=== PATIENT | female | born 1980 | race Hispanic/Latino ===

== ENCOUNTER → 2019-06-19 08:42 | Outpatient (CLI) | payer MEDICARE, MEDICAID, SELFPAY ==
[2019-06-19 10:32] LABS: Hemoglobin A1C% w Est Avg Glu 5.5 % (4.0-6.0)
[2019-06-19 11:26] LABS: Alanine Aminotransferase 19 IU/L (<35); Albumin 4.5 g/dL (3.5-5.0); Albumin Globulin Ratio 1.5 (1.0-2.8); Alkaline Phosphatase 77 U/L (38-126); Aspartate Aminotransferase 22 IU/L (14-36); BUN Creatinine Ratio 24.5 (6-22); Bilirubin Total 0.3 mg/dL (0.2-1.3); Blood Urea Nitrogen 13 mg/dL (7-17); Calcium 9.7 mg/dL (8.4-10.2); Carbon Dioxide 24 mmol/L (22-32); Chloride 104 mmol/L (98-107); Cholesterol 168 mg/dL (140-199); Estimated Glomerular Filt Rate > 60.0 mL/min (>60); Globulin 3.1 g/dL (1.7-4.1); Glucose 98 mg/dL (70-100); HDL Cholesterol 44 mg/dL (40-60); HEMOLYSIS < 15 (0-50); LDL Cholesterol Calculated 91 mg/dL (<100); Potassium 4.7 mmol/L (3.4-5.1); Pregnancy Test Urine Negative (Negative); Sodium 138 mmol/L (137-145); Total Protein 7.6 g/dL (6.3-8.2); Triglycerides 167 mg/dL (35-150); UR Morphine/Opiate cutoff 300 Negative (Negative); Ur Creatinine Normal (Normal); Ur Specific Gravity Normal (Normal); Urine Amphetamines Negative (Negative); Urine Barbiturates Negative (Negative); Urine Benzodiazepines Negative (Negative); Urine Cocaine Negative (Negative); Urine MDMA Negative (Negative); Urine Methadone Negative (Negative); Urine Methamphetamines Negative (Negative); Urine Oxycodone Negative (Negative); Urine Phencyclidine Negative (Negative); Urine Tetrahydrocannabinol Negative (Negative); Urine Tricyclic Antidepressant Positive (Negative); Urine pH Normal (Normal)
[2019-06-19 11:42] LABS: Free T4, Direct Thyroxine 1.17 ng/dL (0.78-2.19)
[2019-06-19 11:56] LABS: Thyroid Stimulating Hormone 1.42 uIU/mL (0.47-4.68)
== END ==
PROVIDERS: Referring Provider Psychiatry & Neurology Psychiatry; Visit Provider Psychiatry & Neurology Psychiatry
DX: E11.9 Type 2 diabetes mellitus without complications (principal); F32.3 Major depressive disorder, single episode, severe with psychotic features
CPT/HCPCS: 36415; 80053; 80061; 80305; 81025; 83036; 84439; 84443

== ENCOUNTER 2020-03-08 15:49 | Emergency (ER) | payer MEDICARE, MEDICAID, SELFPAY ==
[2020-03-08] VITALS (11 sets, daily range): BP systolic 130–142; BP diastolic 75–81; PULSE 81–99; RESP 16–29; TEMP 37.2; O2SAT 93–99; BMI 35.9
[2020-03-08 16:25] LABS: COVID19 -Nasal RAPID Negative (Negative)
--- NOTE | 2020-03-08 17:03 | ED.SOB ---
HPI - SOB/Dyspnea <Breanne Arce DO - Last Filed: 03/11/20 21:44> General Chief Complaint: Shortness of Breath/Dyspnea Stated Complaint: SOB, Chest Tightening Time Seen by Provider: 03/08/20 16:03 Source: patient Mode of arrival: Ambulatory Limitations: no limitations History of Present Illness HPI Narrative: The patient is a 39-year-old female with history of anxiety and pulmonary embolism after a surgery presenting today with back pain and shortness of breath. She states this been ongoing for about a week she does have shortness of breath with exertion and lying down. She denies any any fever or chills. She has no lower extremity swelling or calf pain. She has pain in the back between her shoulder blades. She states this feels exactly like it did when she had a pulmonary embolism. She says it just really feels tight like she cannot take a deep breath MD Complaint: shortness of breath Onset (ago): week(s) (1) Severity: moderate Consistency/Duration: constant Relieving factors: nothing Exacerbating factors: lying flat and exertion Known history of: PE Treatment prior to arrival: none Related Data Previous Rx's Medication Instructions Recorded clonazepam 0.5 mg tablet 0.5 mg PO .COMPLEX #90 tab 03/08/20 Allergies Allergy/AdvReac Type Severity Reaction Status Date / Time atenolol AdvReac Intermediate nausea Verified 03/08/20 16:05 drospirenone AdvReac Intermediate GI issues, Verified 03/08/20 16:05 nausea and vomitting metoclopramide AdvReac Intermediate altered Verified 03/08/20 16:05 heart rate prochlorperazine AdvReac Intermediate vertigo Verified 03/08/20 16:05 promethazine AdvReac Intermediate possible Verified 03/08/20 16:05 reaction in the past topiramate AdvReac Intermediate pancreatitis, Verified 03/08/20 16:05 anaphaxis Review of Systems <DO Masoud Conklin Last Filed: 03/11/20 21:44> Review of Systems Narrative: GENERAL: Denies chills, fatigue, malaise, fever, sweats, travel HEENT: Denies sinus pain, ear pain, sore throat, difficulty swallowing, neck pain RESPIRATORY: See HPI CARDIOVASCULAR: Denies chest pain, palpitations, orthopnea, edema GASTROINTESTINAL: Denies nausea, vomiting, abdominal pain, diarrhea, constipation, melena. : Denies dysuria, frequency, incontinence, hematuria, urinary retention, flank pain. MUSCULOSKELETAL: Denies weakness, joint pain, or bony pain SKIN: No rash, no erythema, no pruritus NEUROLOGIC: Denies weakness, dizziness, headache, numbness, change in speech, confusion PSYCHIATRIC: No concerning psychosocial issues. 12 point review of systems is negative except for those stated above and HPI Patient History <Breanne Arce DO - Last Filed: 03/11/20 21:44> Medical History Anxiety Major depressive disorder, single episode, severe w psychotic behavior Pulmonary embolism Social History Smoking Status: Never smoker Smoking Status: Never smoker Substance Use Type: does not use Exam <Breanne Arce DO - Last Filed: 03/11/20 21:44> Initial Vital Signs Initial Vital Signs: Vital Signs Temperature 98.9 F 03/08/20 16:06 Pulse Rate 82 03/08/20 16:06 Respiratory Rate 18 03/08/20 16:06 Blood Pressure 142/81 H 03/08/20 16:06 Pulse Oximetry 98 03/08/20 16:06 GENERAL: Alert overweight female and in no acute distress. HEENT: Head atraumatic,EOMI, pupils reactive, face symmetric, moist mucous membranes CARDIOVASCULAR: Regular rate and rhythm without murmurs, rubs or gallops. RESPIRATORY: Breath sounds equal bilaterally, no wheezes rales or rhonchi. ABDOMEN: Soft, nontender. Normoactive bowel sounds all 4 quadrants. No guarding or rebound. EXTREMITIES: Normal range of motion, no clubbing or edema. Neurovascularly intact NEUROLOGICAL: Alert and oriented x4.Normal gait and speech. Cranial nerves II through XII grossly intact. SKIN: Warm, dry, no laceration, no petechiae, no rashes or lesions. <Jeovanny Cox DO - Last Filed: 03/09/20 01:09> Initial Vital Signs Initial Vital Signs: Vital Signs Temperature 98.9 F 03/08/20 16:06 Pulse Rate 82 03/08/20 16:06 Respiratory Rate 18 03/08/20 16:06 Blood Pressure 142/81 H 03/08/20 16:06 Pulse Oximetry 98 03/08/20 16:06 Course <Breanne Arce DO - Last Filed: 03/11/20 21:44> Orders Ordered: Discontinued Medications Albuterol (Albuterol 2.5 Mg/3 Ml Neb (Adult)) 2.5 mg INH NOW ONE Stop: 03/08/20 17:12 Last Admin: 03/08/20 17:55 Dose: 2.5 mg Documented by: YASIR Albuterol (Albuterol Hfa Mdi 60 Puff/8 Gm Inhaler) 2 puff INH NOW ONE Stop: 03/08/20 20:57 Last Admin: 03/08/20 21:05 Dose: 2 puff Documented by: CITLALI Vital Signs Vital signs: Vital Signs - 8 hr 03/08/20 17:30 03/08/20 17:55 03/08/20 18:30 Pulse Rate 97 H 96 H 87 Respiratory Rate 25 H 22 16 Blood Pressure Pulse Oximetry 98 96 94 03/08/20 19:00 03/08/20 19:30 03/08/20 20:00 Pulse Rate 83 99 H 87 Respiratory Rate 20 29 H Blood Pressure Pulse Oximetry 95 99 93 03/08/20 20:30 03/08/20 20:50 Pulse Rate 84 81 Respiratory Rate 18 Blood Pressure 130/81 Pulse Oximetry 96 97 <Jeovanny Cox DO - Last Filed: 03/09/20 01:09> Course Course Narrative: Patient received in sign-out from Dr. Arce. I performed an independent history and physical exam. Vital signs are very reassuring. Breathing is unlabored without evidence of rales, rhonchi or wheezing. CT a demonstrates no evidence of PE, infiltrate or other abnormal finding. Patient does have a slight elevation in her white blood cells, etiology is unclear, but no obvious source of bacterial infection. Patient did report improvement after bronchodilators earlier. Extensive discussion at bedside regarding reassuring findings on today's visit. Return precautions given, questions answered to her apparent satisfaction. Orders Ordered: Discontinued Medications Albuterol (Albuterol 2.5 Mg/3 Ml Neb (Adult)) 2.5 mg INH NOW ONE Stop: 03/08/20 17:12 Last Admin: 03/08/20 17:55 Dose: 2.5 mg Documented by: YASIR Albuterol (Albuterol Hfa Mdi 60 Puff/8 Gm Inhaler) 2 puff INH NOW ONE Stop: 03/08/20 20:57 Last Admin: 03/08/20 21:05 Dose: 2 puff Documented by: CITLALI Vital Signs Vital signs: Vital Signs - 8 hr 03/08/20 17:30 03/08/20 17:55 03/08/20 18:30 Pulse Rate 97 H 96 H 87 Respiratory Rate 25 H 22 16 Blood Pressure Pulse Oximetry 98 96 94 03/08/20 19:00 03/08/20 19:30 03/08/20 20:00 Pulse Rate 83 99 H 87 Respiratory Rate 20 29 H Blood Pressure Pulse Oximetry 95 99 93 03/08/20 20:30 03/08/20 20:50 Pulse Rate 84 81 Respiratory Rate 18 Blood Pressure 130/81 Pulse Oximetry 96 97 MDM - SOB/Dyspnea <Breanne Arce DO - Last Filed: 03/11/20 21:44> Lab Data Attestation: I reviewed the patient's lab results. Result diagrams: 03/08/20 18:38 03/08/20 18:38 Labs: Lab Results 03/08/20 03/08/20 03/08/20 Range/Units 16:00 18:38 18:38 WBC 14.4 H (4.5-11.0) X10^3/uL RBC 4.82 (4.0-5.2) X10^6/uL Hgb 13.4 (12.0-16.0) g/dL Hct 41.2 (36-46) % MCV 85.4 (80-100) fL MCH 27.9 (26-34) PG MCHC 32.7 (30-36) % RDW 14.1 (11.6-14.8) % Plt Count 403 H (150-400) X10^3/uL Neut % (Auto) 59.9 (50-75) % Lymph % (Auto) 31.2 (25-40) % [place] % (Auto) 6.2 (3-14) % Eos % (Auto) 1.8 L (2-4) % Baso % (Auto) 0.9 (0-2) % Neut # (Auto) 8600 H (5343-5637) /uL Lymph # (Auto) 4500 (1062-8223) /uL [place] # (Auto) 900 (0-900) /uL Eos # (Auto) 300 (0-450) /uL Baso # (Auto) 100 (0-100) /uL D-Dimer (<230) ng/mL Sodium 139 (137-145) mmol/L Potassium 3.8 (3.4-5.1) mmol/L Chloride 106 (98-107) mmol/L Carbon Dioxide 27 (22-32) mmol/L BUN 12 (7-17) mg/dL Creatinine 0.61 (0.52-1.04) mg/dL Estimated GFR > 60.0 (>60) mL/min BUN/Creatinine Ratio 19.7 (6-22) Glucose 102 H (70-100) mg/dL Calcium 9.4 (8.4-10.2) mg/dL Total Bilirubin 0.2 (0.2-1.3) mg/dL AST 28 (14-36) IU/L ALT 23 (<35) IU/L Alkaline Phosphatase 91 (38-126) U/L Lactate Dehydrogenase 497 (313-618) U/L Total Creatine Kinase 83 (30-135) U/L CK-MB (CK-2) TNP CK-MB (CK-2) Rel Index TNP Troponin I < 0.012 (0.01-0.034) ng/mL C-Reactive Protein 2.1 H (<1.0) mg/dL NT-Pro-B Natriuret Pep 45 (<125) pg/mL Total Protein 8.0 (6.3-8.2) g/dL Albumin 4.5 (3.5-5.0) g/dL Globulin 3.5 (1.7-4.1) g/dL Albumin/Globulin Ratio 1.3 (1.0-2.8) Procalcitonin (<0.5) ng/mL COVID-19 PCR Negative (Negative) 03/08/20 03/08/20 Range/Units 18:38 18:38 WBC (4.5-11.0) X10^3/uL RBC (4.0-5.2) X10^6/uL Hgb (12.0-16.0) g/dL Hct (36-46) % MCV (80-100) fL MCH (26-34) PG MCHC (30-36) % RDW (11.6-14.8) % Plt Count (150-400) X10^3/uL Neut % (Auto) (50-75) % Lymph % (Auto) (25-40) % [place] % (Auto) (3-14) % Eos % (Auto) (2-4) % Baso % (Auto) (0-2) % Neut # (Auto) (6218-6253) /uL Lymph # (Auto) (4806-9714) /uL [place] # (Auto) (0-900) /uL Eos # (Auto) (0-450) /uL Baso # (Auto) (0-100) /uL D-Dimer 304 H (<230) ng/mL Sodium (137-145) mmol/L Potassium (3.4-5.1) mmol/L Chloride (98-107) mmol/L Carbon Dioxide (22-32) mmol/L BUN (7-17) mg/dL Creatinine (0.52-1.04) mg/dL Estimated GFR (>60) mL/min BUN/Creatinine Ratio (6-22) Glucose (70-100) mg/dL Calcium (8.4-10.2) mg/dL Total Bilirubin (0.2-1.3) mg/dL AST (14-36) IU/L ALT (<35) IU/L Alkaline Phosphatase (38-126) U/L Lactate Dehydrogenase (313-618) U/L Total Creatine Kinase (30-135) U/L CK-MB (CK-2) CK-MB (CK-2) Rel Index Troponin I (0.01-0.034) ng/mL C-Reactive Protein (<1.0) mg/dL NT-Pro-B Natriuret Pep (<125) pg/mL Total Protein (6.3-8.2) g/dL Albumin (3.5-5.0) g/dL Globulin (1.7-4.1) g/dL Albumin/Globulin Ratio (1.0-2.8) Procalcitonin < 0.05 (<0.5) ng/mL COVID-19 PCR (Negative) Point of Care Testing Test Results Negative Urine Dip Bedside Urine Glucose Negative Bedside Urine Bilirubin - Negative Bedside Urine Ketone - Negative Urine Specific [place] 1.025 Bedside Urine Occult Blood - Negative Bedside Urine pH 6.0 Bedside Urine Protein - Negative Bedside Urine Urobilinogen - Negative Bedside Urine Nitrite - Negative Bedside Urine Leukocytes - Negative Esterase ECG Data Attestation: I personally reviewed and interpreted this ECG as follows: Prior ECG tracings: not available for review Interpretation: Normal sinus rhythm, rate [address] changes or T-wave inversions. MDM Narrative Medical decision making narrative: To Dr. Cox for further management <Jeovanny Cox DO - Last Filed: 03/09/20 01:09> Lab Data Labs: Lab Results 03/08/20 03/08/20 03/08/20 Range/Units 16:00 18:38 18:38 WBC 14.4 H (4.5-11.0) X10^3/uL RBC 4.82 (4.0-5.2) X10^6/uL Hgb 13.4 (12.0-16.0) g/dL Hct 41.2 (36-46) % MCV 85.4 (80-100) fL MCH 27.9 (26-34) PG MCHC 32.7 (30-36) % RDW 14.1 (11.6-14.8) % Plt Count 403 H (150-400) X10^3/uL Neut % (Auto) 59.9 (50-75) % Lymph % (Auto) 31.2 (25-40) % [place] % (Auto) 6.2 (3-14) % Eos % (Auto) 1.8 L (2-4) % Baso % (Auto) 0.9 (0-2) % Neut # (Auto) 8600 H (5219-8106) /uL Lymph # (Auto) 4500 (7535-3940) /uL [place] # (Auto) 900 (0-900) /uL Eos # (Auto) 300 (0-450) /uL Baso # (Auto) 100 (0-100) /uL D-Dimer (<230) ng/mL Sodium 139 (137-145) mmol/L Potassium 3.8 (3.4-5.1) mmol/L Chloride 106 (98-107) mmol/L Carbon Dioxide 27 (22-32) mmol/L BUN 12 (7-17) mg/dL Creatinine 0.61 (0.52-1.04) mg/dL Estimated GFR > 60.0 (>60) mL/min BUN/Creatinine Ratio 19.7 (6-22) Glucose 102 H (70-100) mg/dL Calcium 9.4 (8.4-10.2) mg/dL Total Bilirubin 0.2 (0.2-1.3) mg/dL AST 28 (14-36) IU/L ALT 23 (<35) IU/L Alkaline Phosphatase 91 (38-126) U/L Lactate Dehydrogenase 497 (313-618) U/L Total Creatine Kinase 83 (30-135) U/L CK-MB (CK-2) TNP CK-MB (CK-2) Rel Index TNP Troponin I < 0.012 (0.01-0.034) ng/mL C-Reactive Protein 2.1 H (<1.0) mg/dL NT-Pro-B Natriuret Pep 45 (<125) pg/mL Total Protein 8.0 (6.3-8.2) g/dL Albumin 4.5 (3.5-5.0) g/dL Globulin 3.5 (1.7-4.1) g/dL Albumin/Globulin Ratio 1.3 (1.0-2.8) Procalcitonin (<0.5) ng/mL COVID-19 PCR Negative (Negative) 03/08/20 03/08/20 Range/Units 18:38 18:38 WBC (4.5-11.0) X10^3/uL RBC (4.0-5.2) X10^6/uL Hgb (12.0-16.0) g/dL Hct (36-46) % MCV (80-100) fL MCH (26-34) PG MCHC (30-36) % RDW (11.6-14.8) % Plt Count (150-400) X10^3/uL Neut % (Auto) (50-75) % Lymph % (Auto) (25-40) % [place] % (Auto) (3-14) % Eos % (Auto) (2-4) % Baso % (Auto) (0-2) % Neut # (Auto) (3395-0658) /uL Lymph # (Auto) (2243-1743) /uL [place] # (Auto) (0-900) /uL Eos # (Auto) (0-450) /uL Baso # (Auto) (0-100) /uL D-Dimer 304 H (<230) ng/mL Sodium (137-145) mmol/L Potassium (3.4-5.1) mmol/L Chloride (98-107) mmol/L Carbon Dioxide (22-32) mmol/L BUN (7-17) mg/dL Creatinine (0.52-1.04) mg/dL Estimated GFR (>60) mL/min BUN/Creatinine Ratio (6-22) Glucose (70-100) mg/dL Calcium (8.4-10.2) mg/dL Total Bilirubin (0.2-1.3) mg/dL AST (14-36) IU/L ALT (<35) IU/L Alkaline Phosphatase (38-126) U/L Lactate Dehydrogenase (313-618) U/L Total Creatine Kinase (30-135) U/L CK-MB (CK-2) CK-MB (CK-2) Rel Index Troponin I (0.01-0.034) ng/mL C-Reactive Protein (<1.0) mg/dL NT-Pro-B Natriuret Pep (<125) pg/mL Total Protein (6.3-8.2) g/dL Albumin (3.5-5.0) g/dL Globulin (1.7-4.1) g/dL Albumin/Globulin Ratio (1.0-2.8) Procalcitonin < 0.05 (<0.5) ng/mL COVID-19 PCR (Negative) Point of Care Testing Test Results Negative Urine Dip Bedside Urine Glucose Negative Bedside Urine Bilirubin - Negative Bedside Urine Ketone - Negative Urine Specific [place] 1.025 Bedside Urine Occult Blood - Negative Bedside Urine pH 6.0 Bedside Urine Protein - Negative Bedside Urine Urobilinogen - Negative Bedside Urine Nitrite - Negative Bedside Urine Leukocytes - Negative Esterase Imaging Data CT scan - chest: Radiologist's Impression: [address] [id number] Scan ReportSigned Patient: Sydnie Samson GMR#: [id number]: [id number]:[id number]/Sex: 39 / FDate of Service: 03/08/20Loc: EDAccession Number: [id number] Procedure: CT angio chest PE protocol Ordering Provider: Breanne Arce D.O. PROCEDURE: CT ANGIO CHEST PE PROTOCOL INDICATIONS: sob with hx of PE TECHNIQUE: After the administration of intravenous contrast, 2 mm thick sections acquired from the pulmonary apices to the posterior costophrenic angles. 3-dimensional maximum intensity projection (MIP) coronal and sagittal reformats were then acquired through the thorax. For radiation dose reduction, the following was used: automated exposure control, adjustment of mA and/or kV according to patient size. COMPARISON: None. FINDINGS: Image quality: Excellent. Pulmonary arteries: Pulmonary arteries are normal in size, and demonstrate no intraluminal filling defects to suggest central pulmonary embolism. Lungs and pleura: Lungs are clear. No pleural effusions or pneumothorax. Central and peripheral airways are patent. Mediastinum: Heart size is normal, without pericardial effusion. No mediastinal or hilar adenopathy. Thoracic aorta is normal in caliber and enhancement. Esophagus is normal in caliber, without hiatal hernia. Bones and chest wall: No suspicious bony lesions. Ribs and thoracic spine appear intact throughout. Thyroid gland is normal . No axillary or supraclavicular adenopathy. Abdomen: Visualized upper abdominal solid organs appear normal in the early arterial phase of enhancement. IMPRESSION: 1. No pulmonary embolism. 2. No acute abnormality of the chest. Dictated by: Leo Harman M.D. on 03/08/2020 at 20:20 Approved by: Leo Harman M.D. on 03/08/2020 at 20:27 Discharge Plan Departure Patient Disposition: Home Clinical Impression: Shortness of Breath, Acute bronchiolitis with bronchospasm Activity Restrictions/Additional Instructions: *You have been diagnosed with [dyspnea with bronchospasm and bronchospastic cough. Your history, physical exam, labs and CT scan are very reassuring. There is no evidence of pneumonia or blood clot.] *What to do: *Take medications as directed *Follow up with your primary care provider in 2-3 days, call for an appointment. Let them know you were seen in the Emergency Department and that we ask that you be seen in follow up *Return to ER if you should have any new, worsening or concerning symptoms Prescriptions: No Action clonazepam 0.5 mg tablet 0.5 mg PO .COMPLEX Qty: 90 RF: 0 Referrals: Santana Whitmore MD [Primary Care Provider] -
[2020-03-08] MEDS: ALBUTEROL 2.5 MG/3 ML NEB (ADULT) INH (17:55)
[2020-03-08 18:41] LABS: Add Manual Diff / Slide Review NO; Basophils Absolute Auto 100 /uL (0-100); Basophils Percent Auto 0.9 % (0-2); Eosinophils Absolute Auto 300 /uL (0-450); Eosinophils Percent Auto 1.8 % (2-4); Hematocrit 41.2 % (36-46); Hemoglobin 13.4 g/dL (12.0-16.0); Lymphocytes Absolute Auto 4500 /uL (1100-4500); Lymphocytes Percent Auto 31.2 % (25-40); Mean Corpuscular HGB Conc 32.7 % (30-36); Mean Corpuscular Hemoglobin 27.9 PG (26-34); Mean Corpuscular Volume 85.4 fL (80-100); Monocytes Absolute Auto 900 /uL (0-900); Monocytes Percent Auto 6.2 % (3-14); Neutrophils Absolute Auto 8600 /uL (1500-7000); Neutrophils Percent Auto 59.9 % (50-75); Platelet Count 403 X10^3/uL (150-400); Red Blood Cell Count 4.82 X10^6/uL (4.0-5.2); Red Cell Distribution Width 14.1 % (11.6-14.8); White Blood Cell Count 14.4 X10^3/uL (4.5-11.0)
[2020-03-08 18:45] LABS: D Dimer 304 ng/mL (<230)
[2020-03-08 18:51] LABS: Alanine Aminotransferase 23 IU/L (<35); Albumin 4.5 g/dL (3.5-5.0); Albumin Globulin Ratio 1.3 (1.0-2.8); Alkaline Phosphatase 91 U/L (38-126); Aspartate Aminotransferase 28 IU/L (14-36); BUN Creatinine Ratio 19.7 (6-22); Bilirubin Total 0.2 mg/dL (0.2-1.3); Blood Urea Nitrogen 12 mg/dL (7-17); C-Reactive Protein Quant 2.1 mg/dL (<1.0); Calcium 9.4 mg/dL (8.4-10.2); Carbon Dioxide 27 mmol/L (22-32); Chloride 106 mmol/L (98-107); Creatine Kinase 83 U/L (30-135); Estimated Glomerular Filt Rate > 60.0 mL/min (>60); Globulin 3.5 g/dL (1.7-4.1); Glucose 102 mg/dL (70-100); HEMOLYSIS 17 (0-50); Lactate Dehydrogenase 497 U/L (313-618); Potassium 3.8 mmol/L (3.4-5.1); Sodium 139 mmol/L (137-145)
[2020-03-08 19:01] LABS: NT-proBNP (BNP-Adult 18+) 45 pg/mL (<125); Procalcitonin < 0.05 ng/mL (<0.5); Troponin I < 0.012 ng/mL (0.01-0.034)
[2020-03-08] MEDS: ALBUTEROL HFA MDI 60 PUFF/8 GM INHALER INH (21:05)
== END 2020-03-08 21:14 | disposition home or self-care (01) ==
PROVIDERS: Emergency Medicine; Emergency Provider Emergency Medicine; PCP Internal Medicine
DX: J21.9 Acute bronchiolitis, unspecified (principal); R06.02 Shortness of breath; F41.9 Anxiety disorder, unspecified; I26.99 Other pulmonary embolism without acute cor pulmonale; E11.9 Type 2 diabetes mellitus without complications; Z20.828 Contact with and (suspected) exposure to other viral communicable diseases
CPT/HCPCS: 71275; 80053; 81003; 81025; 82550; 83615; 83880; 84145; 84484; 85025; 85379; 86140; 87635; 93005; 94640; 99283; 99284; A9270; J7613; Q9967